=== PATIENT | male | born 1960 | race Caucasian/White ===

== ENCOUNTER → 2016-09-04 | Outpatient (CLI) | payer BC, OTHER ==
[~2016-09-04] MED LIST: ACET-1138 PO; ACET-1256 PO; ACET-24 PO; ASPEC81 PO; ASPI81TA28 PO; CLB/200 PO; CLB200 PO; COEN100C7 PO; KRIL1CAP18 PO; METO1TAB69 PO; METO50TA7 PO; MISCTAB78 PO; MULT-506 PO; NAPR1TAB9 PO; NORT10CA2 PO; OMEG10007 PO; OMEP40CA PO; ONDA8TAB12 PO; ONDA8TAB6 PO; OXYSR10 PO; PRLSR20 PO; RXC5 PO; VITA1TAB4 PO; megared PO
[2016-09-04 13:59] LABS: URINE APPEARANCE TURBID (CLEAR); URINE BILIRUBIN NEG (NEG); URINE COLOR DK YELLOW; URINE EPITHELIAL CELL AUTO 0-5 /lpf (0-5); URINE NITRITE NEG (NEG); URINE SPECIFIC GRAVITY 1.025 (1.000-1.030); UROBILINOGEN NEG (NEG)
[2016-09-04 14:02] LABS: MANUAL MICROSCOPIC REQUIRED? NO; REVIEW REQ? NO
== END | disposition home or self-care (01) ==
LOC: C.LABMFLN 08:41
PROVIDERS: ATTEND Family Medicine
DX: I10 Essential (primary) hypertension (principal); Z86.39 Personal history of other endocrine, nutritional and metabolic disease

== ENCOUNTER → 2016-09-20 | Outpatient (CLI) | payer BC, OTHER ==
[~2016-09-20] MED LIST changes: -MISCTAB78 PO; -OMEP40CA PO; -megared PO
[2016-09-20 17:49] LABS: BLOOD UREA NITROGEN 24 mg/dl (7-18); BUN/CREATININE RATIO 25.1 (10-20); CALCIUM 9.7 mg/dl (8.5-10.1); CARBON DIOXIDE 29 mmol/L (21-32); CHLORIDE 106 mmol/L (98-107); CREATININE 0.97 mg/dl (0.60-1.40); GLUCOSE 109 mg/dl (70-99); POTASSIUM 4.5 mmol/L (3.5-5.1); SODIUM 143 mmol/L (136-145)
== END | disposition home or self-care (01) ==
LOC: C.LABMFLN 13:12
PROVIDERS: ATTEND Anesthesiology
DX: M17.12 Unilateral primary osteoarthritis, left knee (principal)

== ENCOUNTER 2016-10-11 06:34 | Inpatient (IN) | payer BC, OTHER ==
[2016-09-19 11:34] VITALS: BMI 36.0
--- NOTE | 2016-09-19 12:13 | PAT Medication Instructions ---
Service Date Sep 19, 2016. Current Home Medication List Acetaminophen (Tylenol), 1,000 MG PO PRN Coenzyme Q10 (Ubidecarenone) (Coq10), 100 MG PO TID Fish Oil ([place]-3), 500 MG PO QAM Metoprolol Succ (Toprol Xl) (Toprol-Xl), 50 MG PO QAM Multivitamin (Multivitamin), 1 TAB PO QAM Naproxen (Aleve), 440 MG PO PRN Nortriptyline (Pamelor), 10 MG PO HS Omeprazole (Prilosec), 20 MG PO QAM Ondansetron Hcl (Zofran), 8 MG PO TID PRN for N Medication Instructions For Your Scheduled Surgery - Hold the following medications 2 weeks prior to surgery: Fish Oil ([place]-3), 500 MG PO QAM - Hold the following medications 24 hours prior to surgery: Coenzyme Q10 (Ubidecarenone) (Coq10), 100 MG PO TID - Hold the following medications the morning of surgery: Multivitamin (Multivitamin), 1 TAB PO QAM Naproxen (Aleve), 440 MG PO PRN - Take the following medications the morning of surgery with a sip of water OTHERWISE NOTHING TO EAT OR DRINK AFTER MIDNIGHT: Acetaminophen (Tylenol), 1,000 MG PO PRN (may take if needed up to 4 hours prior to surgery) Metoprolol Succ (Toprol Xl) (Toprol-Xl), 50 MG PO QAM Omeprazole (Prilosec), 20 MG PO QAM Ondansetron Hcl (Zofran), 8 MG PO TID PRN - Take the following medications as scheduled the night before surgery: Acetaminophen (Tylenol), 1,000 MG PO PRN Nortriptyline (Pamelor), 10 MG PO HS Naproxen (Aleve), 440 MG PO PRN Ondansetron Hcl (Zofran), 8 MG PO TID PRN for N If you have any questions please call us at [phone] (Hannah Caceres PA-C) or [phone] or [phone]
[2016-09-19 13:09] LABS: BASO % 0.6 %; BASO ABS # 0.03 K/uL (0-0.2); COMPLETE YES; EOS % 0.7 %; HEMATOCRIT 44.3 % (42-52); IG% 0.4 %; LYMPH % 25.9 %; LYMPH ABS # 1.39 K/uL (1.2-3.4); MEAN CELL VOLUME 86.9 fL (80-100); MEAN CORPUSCULAR HEMOGLOBIN 31.4 pg (25-34); MEAN CORPUSCULAR HGB CONC 36.1 g/dl (32-36); MONO % 4.1 %; NEUT % 68.3 %; PLATELET COUNT 256 K/uL (130-400); WHITE BLOOD COUNT 5.37 K/uL (4.8-10.8)
[2016-09-19 13:18] LABS: PROTHROMBIN TIME (PATIENT) 11.1 SECONDS (9.0-12.0)
[2016-09-19 13:51] LABS: BLOOD UREA NITROGEN 18 mg/dl (7-18); BUN/CREATININE RATIO 16.4 (10-20); CALCIUM 10.5 mg/dl (8.5-10.1); CARBON DIOXIDE 28 mmol/L (21-32); CHLORIDE 104 mmol/L (98-107); GLUCOSE 105 mg/dl (70-99); SODIUM 140 mmol/L (136-145)
[2016-09-19 14:09] LABS: ESTIMATED AVERAGE GLUCOSE 123 mg/dl; HA1C FLAG Normal (Normal)
--- NOTE | 2016-10-01 17:59 | HISTORY & PHYSICAL EXAMINATION ---
DATE OF ADMISSION: 10/11/2016 SUBJECTIVE AND CHIEF COMPLAINT: Left knee pain. HISTORY OF PRESENT ILLNESS: The patient is a 56-year-old male who complains of left knee pain. The symptoms have been getting progressively worse over time. He describes the pain as aching, sharp and throbbing. The patient has tried anti-inflammatories, physical therapy and cortisone injections without any relief. The patient would like to proceed with a left knee arthroplasty. PAST MEDICAL HISTORY: Significant for hypertension, GERD, osteoarthritis, sickle cell, vomiting syndrome. 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 SOCIAL HISTORY: Drinks 2 cans of beer per month. He quit smoking in April of 2014. He denies IV drug use. He lives in a 1-story house. FAMILY HISTORY: Mom had a stroke. Dad had a heart attack. MEDICATIONS: Metoprolol 50 mg once daily, multivitamin once daily, nortriptyline 10 mg at bedtime, Mick Krill 500 mg once daily, omeprazole 20 mg daily, Zofran as needed for nausea, CoQ10 100 mg 1 capsule 3 times daily. ALLERGIES: He has no known drug allergies. REVIEW OF SYSTEMS: He denies fevers, chills, headaches, weight loss, double vision, blurry vision, sore throat, hearing loss, tremors, dizziness, numbness or tingling, tired and thirsty hot and cold intolerance, abdominal pain, nausea, vomiting, diarrhea, chest pain, swelling of the legs or feet, frequency to go into the back, pain or burning with urination, incontinence, wheezing, cough, shortness of breath, depression, thoughts of harming himself or harm to others, nervousness or anxiousness. He is positive for joint pain, stiffness and swelling of the left knee. OBJECTIVE: GENERAL APPEARANCE: The patient is a 56-year-old male in no acute distress, well dressed, well nourished. He is awake, alert and oriented x3. HEENT: Extraocular movements are intact. PERRLA. Mucosa was moist. No septal deviation. NECK: Supple, no lymphadenopathy, no JVD, no thyromegaly. HEART: Regular rate and rhythm with no murmurs or gallops. LUNGS: Clear to auscultation. No wheezing or rhonchi. ABDOMEN: Soft, nontender, nondistended. Normal bowel sounds. EXTREMITIES: Hollister particular attention to the left knee. He is able to get to 0 degrees of extension actively. He is able to get to 110 degrees of flexion actively. He has negative Kris, negative anterior drawer, and negative posterior drawer. He is moderately positive with a valgus stress test. IMAGING DATA: X-ray of the left knee shows bone on bone on the medial compartment with periarticular osteophyte formation, and subchondral changes. IMPRESSION: End-stage osteoarthritis of the knee. PLAN: The patient is scheduled for a left total knee arthroplasty. The patient has failed conservative therapies which include anti-inflammatories, physical therapy and cortisone injections. The patient wishes to proceed with a left knee arthroplasty. Risks and benefits to surgery were included but not limited to blood clot, nerve damage, blood vessel damage, infection, failure to relieve all symptoms, increase or revision surgery and anesthesia risks. The patient understands these risks and he wishes to proceed. All questions were answered to his satisfaction. DANIELLE
[2016-10-11] VITALS (10 sets, daily range): BP systolic 123–148; BP diastolic 84–104; PULSE 89–118; TEMP 36.4–37; O2SAT 94–98; Ht 170.2 cm; Wt 104.2 kg
[~2016-10-11] VITALS: Ht 170.2 cm; Wt 104.2 kg
[~2016-10-11 06:34] MED LIST changes: -ACET-1138 PO; -ACET-24 PO; +ACETAMINOPHEN 500 MG TAB PO SCH; -ASPEC81 PO; -ASPI81TA28 PO; +CEFAZOLIN 2000 MG/60 ML D5W 60 ML IV SCH; -CLB/200 PO; -CLB200 PO; +CeleBREX 200 MG CAP PO SCH; +DEXAMETHASONE 4 MG TAB PO SCH; +FAMOTIDINE 20 MG TAB PO SCH; +GABAPENTIN 300 MG CAP PO SCH; -KRIL1CAP18 PO; +LACTATED RINGER'S 1000ML 1,000 ML IV SCH; +LACTATED RINGER'S 1000ML 500 ML IV ONE; +LACTATED RINGER'S 1000ML IV SCH; -METO1TAB69 PO; +METOCLOPRAMIDE HCL 10 MG TAB PO SCH; -ONDA8TAB12 PO; -OXYSR10 PO; +ROPIVACAINE 5MG/ML 30 ML 150 MG, BUPIVACAINE/EPINEPHR 0.5% MPF 30 ML, KETOROLAC TROMETH... INFIL SCH; -RXC5 PO; -VITA1TAB4 PO
[2016-10-11] MEDS ORDERED: BUPIVACAINE 0.25% 30 ML VIAL ONE (06:35)
[2016-10-11] MEDS ORDERED: BUPIVACAINE 0.5 % 5 MG/1 ML PF 10ML VIAL ONE (06:35)
[2016-10-11] MEDS ORDERED: MIDAZOLAM HCL 1 MG/ML 2ML VIAL ONE (07:08)
[2016-10-11] MEDS ORDERED: PROPOFOL IV EMULSION 10 MG/ML 20 ML VIAL IV ONE ×2 (07:10→11:05)
--- NOTE | 2016-10-11 08:00 | History & Physical Bridge Note ---
H&P Re-Evaluation Bridge Note: I have examined the patient, reviewed the History & Physical and in the interval since the performance of the History & Physical I have noted the following changes of clinical significance: No changes noted
[2016-10-11] MEDS ORDERED: POVIDONE-IODINE OP SOLN 30 ML BTL ONE (08:04)
[2016-10-11] MEDS ORDERED: ORTHO JOINT ANESTHETIC ONE (08:04)
[2016-10-11] MEDS ORDERED: BACITRACIN 50000 UNIT VIAL ONE (08:05)
[2016-10-11] MEDS: TRANEXAMIC ACID INJ 1,000 MG in SODIUM CHLORIDE 0.9% 100ML 100 ML IV SCH ×2 (08:54→13:13)
[2016-10-11] MEDS ORDERED: ONDANSETRON INJ 2 MG/ML 2 ML VIAL ONE (09:40)
[2016-10-11] MEDS ORDERED: ONDANSETRON INJ 2 MG/ML 2 ML VIAL IV PRN ×2 (09:45→11:45)
[2016-10-11] MEDS ORDERED: ATROPINE SULFATE 0.1 MG/ML 5ML SYR IV PRN (09:45)
[2016-10-11] MEDS ORDERED: KETOROLAC TROMETHAMINE 30 MG/ML VIAL IV. PRN (09:45)
[2016-10-11] MEDS ORDERED: PHENYLEPHRINE 100MCG/ML 5ML SYR IV PRN (09:45)
[2016-10-11] MEDS ORDERED: HYDROmorphone INJ 2 MG/ML SYR/VIAL IV PRN (09:45)
[2016-10-11] MEDS ORDERED: EpHEDrine SULFATE INJ 50 MG/ML AMP IV PRN (09:45)
--- NOTE | 2016-10-11 10:47 | [facility] Post Operative Brief Note ---
Immediate Operative Summary Operative Date Oct 11, 2016. Pre-Operative Diagnosis End-stage osteoarthritis of the left knee Post-Operative Diagnosis Same as preoperative diagnosis Procedure(s) Performed Left Total Knee Arthroplasty Surgeon Dr Bates Two Way Radio Technician Surgeon(s) Jareth Dela Cruz PA-C Estimated Blood Loss 20ML Findings above Specimens A: left knee bone and tissue Drains 2 hemovac Anesthesia spinal Complication(s) None Disposition Recovery Room / PACU
[2016-10-11] MEDS ORDERED: ZOLPIDEM TARTRATE 5 MG TAB PO PRN (11:45)
[2016-10-11] MEDS ORDERED: ALUMINUM/MAGNESIUM/SIMETH (MAALOX MAX) 30 ML UDC PO PRN (11:45)
[2016-10-11] MEDS ORDERED: OXYCODONE HCL IR 5 MG TAB (IMMEDIATE RELEASE) PO PRN (11:45)
[2016-10-11] MEDS ORDERED: MoRPHine SULFATE 2 MG/ML CARP IV PRN (11:45)
[2016-10-11] MEDS ORDERED: TAMSULOSIN HCL 0.4 MG CAP PO PRN (11:45)
[2016-10-11] MEDS ORDERED: DiphenhydrAMINE HCL 50 MG/ML VIAL IV PRN (11:45)
[2016-10-11] MEDS ORDERED: BISACODYL 10 MG SUPP PR PRN (11:45)
[2016-10-11] MEDS ORDERED: MAGNESIUM HYDROXIDE SUSP 30 ML UDC PO PRN (11:45)
--- NOTE | 2016-10-11 12:10 | DIAGNOSTIC IMAGING REPORT ---
LEFT KNEE 1 OR 2 VIEWS ROUTINE CLINICAL HISTORY: AP/LATERAL IN PACU LEFT KNEE joint replacement COMPARISON: None. DISCUSSION: Anatomic alignment status post total left knee replacement. Good contact between prosthetic and underlying bone. IMPRESSION: Anatomic alignment status post total left knee replacement Electronically signed by: Catrachito Whalen M.D. 10/11/2016 12:09 PM Dictated Date/Time: 10/11/2016 12:08 PM
[2016-10-11] MEDS ORDERED: MoRPHine SULFATE 10 MG/ML CARP/VIAL IV PRN (14:00)
[2016-10-11] MEDS ORDERED: MoRPHine SULFATE 4 MG/ML 1 ML CARP\\VIAL IV PRN (14:00)
[2016-10-11] MEDS ORDERED: NON-FORMULARY MEDICATION (Coenzyme Q10 (Ubidecarenone) (Coq10) 100 MG) PO SCH (14:00)
[2016-10-11] MEDS: D5W AND 1/2NSS + 20MEQ KCL 1,000 ML IV SCH ×2 (14:06→22:51)
--- NOTE | 2016-10-11 14:37 | Anesthesiology Progress Note ---
Anesthesia Post Op Note Date & Time Oct 11, 2016 at 14:37 Vital Signs Pain Intensity: 0 Vital Signs Past 12 Hours Date Time Temp Pulse Resp B/P Pulse Ox O2 Delivery O2 Flow Rate FiO2 10/11/16 14:15 94 18 147/102 98 10/11/16 13:15 36.6 93 18 132/93 97 Nasal Cannula 2.0 10/11/16 12:47 36.4 91 16 126/90 96 Nasal Cannula 2.0 10/11/16 12:15 Nasal Cannula 2.0 10/11/16 12:15 Nasal Cannula 10/11/16 12:15 36.4 89 16 129/89 96 Nasal Cannula 2.0 10/11/16 12:09 36.9 10/11/16 12:05 98 16 10/11/16 12:05 98 16 98 10/11/16 12:03 121/79 10/11/16 12:00 80 15 96 10/11/16 12:00 80 15 10/11/16 11:58 114/81 10/11/16 11:55 92 17 97 10/11/16 11:55 92 17 10/11/16 11:53 109/81 10/11/16 11:50 88 10/11/16 11:50 87 16 97 10/11/16 11:48 121/86 10/11/16 11:45 89 10/11/16 11:45 89 16 97 10/11/16 11:43 111/74 10/11/16 11:40 101 10/11/16 11:40 101 12 96 10/11/16 11:39 131/99 10/11/16 11:35 110 16 10/11/16 11:35 109 16 118/81 97 10/11/16 11:35 37.1 108 18 118/81 97 Nasal Cannula 3 10/11/16 07:28 37 91 18 148/104 95 Room Air Notes Mental Status: alert / awake / arousable, participated in evaluation Pt Amnestic to Procedure: Yes Nausea / Vomiting: adequately controlled Pain: adequately controlled Airway Patency, RR, SpO2: stable & adequate BP & HR: stable & adequate Hydration State: stable & adequate Anesthetic Complications: no major complications apparent
[2016-10-11] MEDS: ACETAMINOPHEN 500 MG TAB PO SCH ×2 (16:14→22:51)
[2016-10-11] MEDS: KETOROLAC TROMETHAMINE 30 MG/ML VIAL IV. SCH ×2 (16:14→20:41)
[2016-10-11] MEDS: CEFAZOLIN IV 2,000 MG in DEXTROSE 5% 50ML 50 ML IV SCH (18:07)
[2016-10-11] MEDS: FERROUS GLUCONATE 324 MG TAB PO SCH (18:07)
[2016-10-11] MEDS: OXYCODONE HCL 10 MG TABCR (OXYCONTIN) PO SCH (18:07)
[2016-10-11] MEDS: ASPIRIN 81 MG ECTAB PO SCH (20:40)
[2016-10-11] MEDS: DOCUSATE SODIUM 100 MG CAP PO SCH (20:41)
[2016-10-11] MEDS ORDERED: SENNA 8.6 MG TAB PO SCH (21:00)
[2016-10-11] MEDS ORDERED: NORTRIPTYLINE HCL 10 MG CAP PO SCH (21:00)
--- NOTE | 2016-10-11 21:29 | OPERATIVE REPORT ---
DATE OF OPERATION: 10/11/2016 PREOPERATIVE DIAGNOSIS: Left knee degenerative joint disease. POSTOPERATIVE DIAGNOSIS: Same. PROCEDURE: Left total knee arthroplasty. SURGEON: Dr. Bates. ASSISTANTS: Chung Barajas PA-C and Jareth Dela Cruz PA-C, who were necessary for assistance of the procedure with positioning, prepping, draping, retraction and closure. ANESTHESIA: Spinal with adductor canal block. SPECIMEN: Bone and tissue. IMPLANTS: Manjarrez \T\ Nephew Journey version II femur 6, tibia 5, poly 9, patella 35 oval. DRAINS: Two Hemovacs. COMPLICATIONS: None. ESTIMATED BLOOD LOSS: 20 mL. INDICATIONS: The patient is a 56-year-old male with longstanding osteoarthritic change in the left knee, bone on bone in the medial compartment. He has failed conservative measures including injection, anti-inflammatories and rehab. Failing conservative measures, he wished to proceed with left total knee arthroplasty. Risks, benefits and alternatives to surgery including but not limited to infection, DVT, pain, stiffness, need for revision surgery, failure to relieve all symptoms, damage to blood vessels, damage to nerves, risks of anesthesia discussed with the patient and he wished to proceed. DESCRIPTION OF PROCEDURE: The patient was identified, laterality was confirmed and marked. He received a preoperative antibiotic as well as a spinal anesthetic and an adductor canal block. A well-padded tourniquet was placed on the thigh and limb was prepped and draped in usual sterile manner with ChloraPrep. Limb was exsanguinated and tourniquet was inflated. I made a longitudinal incision in anterior aspect of the knee, sharply incising through the skin utilizing Bovie electrocautery to achieve hemostasis. I made a medial parapatellar arthrotomy, mobilized the patella laterally. I then excised the fat pad and the anterior horns of the medial and lateral meniscus. I then pinned into place the patient matched distal femoral cutting guide, made my distal femoral resection and then pinned in place a size 6 5-in-1 cutting guide, made my anterior, posterior and chamfer cuts. I then excised the cruciate, I then prepared the patella with a freehand cut and sized and drilled for a size 35 oval patella. I then pinned into place the patient matched tibial cutting guide, made my tibial resection, sized in position and cut for the post of a size 5 tibial plate. I then removed the remaining portion of the menisci and posterior osteophytes off the femur. I then placed a size [address], cut for the trochlear component, placed this into position. We had good soft tissue balancing with a 9 poly. The patella tracked well. No lateral release was required. All the trial components were removed. Wound was thoroughly irrigated. Deep tissues were anesthetized with an Orthomix solution and then with a Simplex HV with gent cement, I cemented my definitive components. This was Manjarrez \T\ Nephew Journey version II femur 6, tibia 5, poly 9, patella 35 oval. Betadine soak was performed. The arthrotomy was closed with interrupted #1 Vicryl suture, subcutaneous tissue with interrupted 2-0 Vicryl suture and skin with yadiel. Sterile dressing was applied and the tourniquet was released. All needle and sponge counts were correct at the end of the procedure. The patient was transferred to the PACU in stable condition without apparent complication. I attest to the content of the Intraoperative Record and any orders documented therein. Any exceptio ns are noted below.
[2016-10-12] MEDS: CEFAZOLIN IV 2,000 MG in DEXTROSE 5% 50ML 50 ML IV SCH (01:42)
[2016-10-12] MEDS: KETOROLAC TROMETHAMINE 30 MG/ML VIAL IV. SCH ×2 (03:57→09:21)
[2016-10-12 04:02] VITALS: BP 133/87; PULSE 98; TEMP 36.5; O2SAT 95
[2016-10-12 06:52] LABS: HEMATOCRIT 36.1 % (42-52); MEAN CORPUSCULAR HEMOGLOBIN 30.7 pg (25-34); MEAN CORPUSCULAR HGB CONC 34.9 g/dl (32-36); MEAN PLATELET VOLUME 10.9 fL (7.4-10.4); PLATELET COUNT 265 K/uL (130-400); WHITE BLOOD COUNT 13.76 K/uL (4.8-10.8)
[2016-10-12 07:19] LABS: BUN/CREATININE RATIO 20.9 (10-20); CALCIUM 8.7 mg/dl (8.5-10.1); CREATININE 1.1 mg/dl (0.60-1.40); POTASSIUM 4.3 mmol/L (3.5-5.1)
[2016-10-12 07:26] VITALS: BP 146/67; PULSE 106; TEMP 36.8; O2SAT 94
[2016-10-12] MEDS ORDERED: METOPROLOL SUCC 50MG EXT REL TAB PO SCH (09:00)
[2016-10-12] MEDS ORDERED: NON-FORMULARY MEDICATION (Omeprazole (Prilosec) 20 MG) PO SCH (09:00)
[2016-10-12] MEDS ORDERED: PANTOprazole SOD 40 MG TAB PO SCH (09:00)
[2016-10-12] MEDS ORDERED: MULTIVITAMIN TAB PO SCH (09:00)
[2016-10-12] MEDS: OXYCODONE HCL 10 MG TABCR (OXYCONTIN) PO SCH (09:02)
[2016-10-12] MEDS: DOCUSATE SODIUM 100 MG CAP PO SCH (09:03)
[2016-10-12] MEDS: FERROUS GLUCONATE 324 MG TAB PO SCH (09:04)
[2016-10-12] MEDS: ASPIRIN 81 MG ECTAB PO SCH (09:04)
[2016-10-12] MEDS: ACETAMINOPHEN 500 MG TAB PO SCH (09:04)
--- NOTE | 2016-10-12 09:55 | Orthopedic Progress Note ---
Orthopedic Progress Note Date of Service Oct 12, 2016. Subjective Post OP Day: 1 Reports: feeling well, pain controlled w PO medications, Denies: SOB, calf pain , chest pain, complaints, light headedness, nausea / vomiting Objective calves soft nontender, N/V intact, capillary refill less than 2 sec., dressing C /D/I, A&O x3, toes mobile Date Time Temp Pulse Resp B/P Pulse Ox O2 Delivery O2 Flow Rate FiO2 10/12/16 07:50 Room Air 10/12/16 07:26 36.8 106 20 146/67 94 Room Air 10/12/16 04:02 36.5 98 16 133/87 95 Room Air 10/12/16 00:38 Room Air 10/11/16 23:49 37.0 103 16 129/84 96 Room Air 10/11/16 20:43 108 10/11/16 19:30 36.7 118 18 123/87 94 10/11/16 16:15 Room Air 10/11/16 15:17 36.8 110 18 124/93 97 Nasal Cannula 2.0 10/11/16 14:44 142/96 10/11/16 14:15 94 18 147/102 98 10/11/16 13:15 36.6 93 18 132/93 97 Nasal Cannula 2.0 10/11/16 12:47 36.4 91 16 126/90 96 Nasal Cannula 2.0 10/11/16 12:15 Nasal Cannula 2.0 10/11/16 12:15 Nasal Cannula 10/11/16 12:15 36.4 89 16 129/89 96 Nasal Cannula 2.0 10/11/16 12:09 36.9 10/11/16 12:05 98 16 10/11/16 12:05 98 16 98 10/11/16 12:03 121/79 10/11/16 12:00 80 15 96 10/11/16 12:00 80 15 10/11/16 11:58 114/81 10/11/16 11:55 92 17 97 10/11/16 11:55 92 17 10/11/16 11:53 109/81 10/11/16 11:50 88 10/11/16 11:50 87 16 97 10/11/16 11:48 121/86 10/11/16 11:45 89 10/11/16 11:45 89 16 97 10/11/16 11:43 111/74 10/11/16 11:40 101 10/11/16 11:40 101 12 96 10/11/16 11:39 131/99 10/11/16 11:35 110 16 10/11/16 11:35 109 16 118/81 97 10/11/16 11:35 37.1 108 18 118/81 97 Nasal Cannula 3 Laboratory Results 24 Hours: Test 10/12/16 06:04 Hematocrit 36.1 % Hemoglobin 12.6 g/dL Assessment & Plan Assessment: POD #1, Lt TKA Plan: PT/ Ot DVT proph- ASA D/C planning- Home w HH today if does well in PT. Inhouse Planning Pain Management: Toradol, Oxycontin, Morphine, PO Tylenol, Oxy IR DVT Prophylaxis: TEDs, SCDs, ASA Discharge Planning Discharge Planning: home with home health Pain Management: Oxycontin, PO Tylenol, Oxy IR DVT Prophylaxis: TEDs, ASA Therapy: Physical Therapy, Occupational Therapy
[2016-10-12] MEDS ORDERED: ONDA8TAB6 PO (09:58)
[2016-10-12] MEDS ORDERED: RXC5 PO (09:58)
[2016-10-12] MEDS ORDERED: ASPEC81 PO (09:58)
[2016-10-12] MEDS ORDERED: OXYSR10 PO (09:58)
[2016-10-12] MEDS ORDERED: ACET-1138 PO (09:58)
--- NOTE | 2016-10-12 10:00 | Discharge Instructions ---
Discharge Instructions Admission Reason for Admission: Left Knee Osteoarthritis Discharge Discharge Diagnosis / Problem: Lt TKA Discharge Goals Goal(s): Improve function Activity Recommendations Activity Limitations: as noted below . Instructions / Follow-Up Instructions / Follow-Up ACTIVITY RECOMMENDATIONS: SELF CARE INSTRUCTIONS AFTER TOTAL KNEE REPLACEMENT A. You may need to continue a physical therapy program after discharge from the hospital. There are several options available to you. Your doctor will assist you in selecting the best one for you. 1. An out-patient facility 2 to 3 times a week for therapy or home therapy. 2. Continue working on all exercises taught to you in the hospital. Your goals should be to increase bending of your knee to 90 degrees and beyond and to fully straighten your knee. B. You may progress at your own pace from walking with a walker or crutches to a cane; then to no assistive devices. C. Make walking a part of your daily routine. Be up as much as comfortable with rest periods throughout the day. Rest with leg elevation is very important. Use the ice wrap frequently for the first 3-4 weeks. D. There are no restrictions on activities. You may ride in a car, shop, participate in general merchandise salesperson and all social activities. E. Wear the long elastic stockings (DAKOTAH hose) 20 hours a day for 2 weeks after surgery. They can be removed several times a day for laundering and for a bath. F. You may shower, no tub baths until cleared by your doctor. SPECIAL CARE INSTRUCTIONS: VERY IMPORTANT TO READ AND REVIEW A. There are a few signs you need to watch for after you are home. Call [facility] if you notice any of the followin. Increased severe knee pain. Some pain is expected especially when you exercise. 2. Increased swelling in your leg or knee; pain or swelling of the calf muscle in either lower leg. 3. Any fluid drainage from the incision. 4. Shortness of breath or chest pain. B. Please call [facility] at if you have any concerns or questions about your operation or recovery. The doctor or his nurse will return your call promptly. C. You must take antibiotics before dental work, bladder, bowel or other surgery. Your doctor will provide you with a permanent care to carry describing this precaution. IMPORTANT: * REMEMBER TO TAKE ASPIRIN, 81 MG, TWICE DAILY FOR 4 WEEKS UNLESS OTHERWISE DIRECTED. THIS IS YOUR BLOOD THINNER. * HIGH RISK PATIENTS MAY BE PRESCRIBED A STRONGER BLOOD THINNER. THIS WILL BE PROVIDED AT DISCHARGE. * CALL IF INCREASED PAIN, REDNESS, DRAINAGE OR FEVER GREATER THAT 101. * WEAR DAKOTAH HOSE 20 HOURS PER DAY FOR 2 WEEKS. * YOU MAY HAVE A LARGE BAND-AID LIKE DRESSING (SILVERON). THIS WILL REMAIN ON YOUR INCISION FOR 7 DAYS, THEN CAN BE REMOVED. IF INCISION IS LEAKING THROUGH DRESSING, CALL THE OFFICE . FOLLOW UP VISIT: If appointment is not already scheduled: Please call [facility] to make a follow-up appointment for 2 weeks after your surgery at . Current Hospital Diet Patient's current hospital diet: Regular Diet Discharge Diet Recommended Diet: Regular Diet Procedures Procedures Performed: Left Total Knee Arthroplasty Pending Studies Studies pending at discharge: no Laboratory Results Hemoglobin A1c Test 09/19/16 12:20 Range/Units Estimated Average Glucose 123 mg/dl Hemoglobin A1c 5.9 H 4.5-5.6 % Lipid Panel Test 09/04/16 09:40 Range/Units Triglycerides Level 321 H 0-150 mg/dl Cholesterol Level 210 H 0-200 mg/dl HDL Cholesterol 35 mg/dl Cholesterol/HDL Ratio 6.0 LDL Cholesterol, Calculated 111 mg/dl Medical Emergencies . Who to Call and When: Medical Emergencies: If at any time you feel your situation is an emergency, please call 911 immediately. . Non-Emergent Contact Non-Emergency issues call your: Primary Care Provider . "Provider Documentation" section prepared by Catrachito Meredith. VTE Core Measure Inpt VTE Proph given/why not?: Other Anticoagulation (asa), T.E.D. Stockings, SCD's
[2016-10-12 10:05] VITALS: BP 146/67; PULSE 106; TEMP 36.8; O2SAT 94
--- NOTE | 2016-10-16 00:39 | DISCHARGE SUMMARY ---
ADMISSION DIAGNOSIS: Severe end-stage left knee osteoarthritis. DISCHARGE DIAGNOSIS: Left total knee arthroplasty. CONSULTS: None. PROCEDURES: On 10/11/2016, the patient had a left TKA performed. HISTORY OF PRESENT ILLNESS: The patient is a 56-year-old male who complains of left knee pain. Symptoms have been getting progressively worse over time. He describes the pain as aching, sharp and throbbing. The patient has tried anti-inflammatories, physical therapy and cortisone injections without relief. The patient would like to proceed with a left knee arthroplasty. HOSPITAL COURSE: Postop day #1, the patient reports feeling well. Pain is controlled with p.o. medication. He denies shortness of breath, chest pain, lightheadedness, nausea or vomiting. His plan was to be discharged to home with home health. DISCHARGE CONDITION: Stable. DISPOSITION: Home with home health. MEDICATIONS: Acetaminophen 1000 mg every 8 hours for 21 days, aspirin 81 mg twice daily for 30 days, OxyContin 10 mg by mouth twice daily, oxycodone 5 to 10 mg by mouth q. 4 hours as needed for pain, Coenzyme Q10 at 100 mg by mouth 3 times daily, Toprol-XL 50 mg by mouth in the morning, multivitamin by mouth in the morning, nortriptyline 10 mg by mouth at bedtime, Prilosec 20 mg by mouth in the morning, Zofran 8 mg by mouth 3 times daily as needed for nausea. INSTRUCTIONS: The patient is discharged, physical therapy 2-3 times a week after discharge from the hospital. He is allowed to use ice as needed. He is to wear elastic stockings 20 hours a day for 2 weeks after surgery. He may shower but no bath tubs until cleared by the doctor. He is to have a regular diet. He is to call [facility] if he notices an increase in knee pain, fluid drainage from the incision, shortness of breath or chest pain. He is to remember to take aspirin 81 mg twice daily for 4 weeks. He is to schedule a followup appointment with [facility] 2 weeks after his surgery with Dr. Bates or his PA. DANIELLE
[2017-04-23] MEDS ORDERED: ACET-1256 PO (10:46)
[2017-04-23] MEDS ORDERED: METO1TAB69 PO (10:46)
[2017-04-23] MEDS ORDERED: ASPI81TA28 PO (10:46)
[2017-04-23] MEDS ORDERED: VITA1TAB4 PO (10:48)
[2017-05-12] MEDS ORDERED: NAPR1TAB9 PO (12:54)
[2017-05-12] MEDS ORDERED: KRIL1CAP18 PO (12:54)
[2017-05-12] MEDS ORDERED: CLB/200 PO (12:54)
== END 2016-10-12 12:40 | disposition home health service (06) | DRG 470 ==
LOC: ENRESERVTM → ENRESERVDT → C.ACU 06:34 → C.3E 11:48
PROVIDERS: ADMIT Orthopaedic Surgery; ATTEND Orthopaedic Surgery
PROC: 0SRD0J9 Replacement of Left Knee Joint with Synthetic Substitute, Cemented, Open Approach (ICD-10-PCS; principal; 2016-10-11 09:30)
DX: M17.12 Unilateral primary osteoarthritis, left knee (principal); I10 Essential (primary) hypertension; K21.9 Gastro-esophageal reflux disease without esophagitis; Z79.899 Other long term (current) drug therapy; Z87.891 Personal history of nicotine dependence; Z82.49 Family history of ischemic heart disease and other diseases of the circulatory system; Z82.3 Family history of stroke

== ENCOUNTER 2017-05-23 04:46 | Inpatient (IN) | payer BC, OTHER ==
[2017-04-23 10:48] VITALS: BMI 35.0
--- NOTE | 2017-04-23 11:25 | PAT Medication Instructions ---
Service Date Apr 23, 2017. Current Home Medication List Acetaminophen (Tylenol), 1,000 MG PO Q8 PRN for Pain Aspirin (Aspirin Ec), 81 MG PO QAM Coenzyme Q10 (Ubidecarenone) (Coq10), 100 MG PO TID Metoprolol Succ (Toprol Xl) (Toprol-Xl ), 150 MG PO QAM Multivitamin (Multivitamin), 1 TAB PO QAM Nortriptyline (Pamelor), 10 MG PO HS Omeprazole (Prilosec), 20 MG PO QAM Vitamin E (Vitamin E), Unknown Dose PO QAM Medication Instructions For Your Scheduled Surgery - Hold the following medications 2 weeks prior to surgery: Vitamin E (Vitamin E), Unknown Dose PO QAM - Hold the following medications 24 hours prior to surgery: Coenzyme Q10 (Ubidecarenone) (Coq10), 100 MG PO TID (Rx from GI) - Hold the following medications the morning of surgery: Multivitamin (Multivitamin), 1 TAB PO QAM - Take the following medications the morning of surgery with a sip of water OTHERWISE NOTHING TO EAT OR DRINK AFTER MIDNIGHT: Omeprazole (Prilosec), 20 MG PO QAM Aspirin (Aspirin Ec), 81 MG PO QAM Metoprolol Succ (Toprol Xl) (Toprol-Xl ), 150 MG PO QAM Acetaminophen (Tylenol), 1,000 MG PO Q8 PRN for Pain (if needed up to 4 hours prior to surgery) - Take the following medications as scheduled the night before surgery: Nortriptyline (Pamelor), 10 MG PO HS If you have any questions please call us at [phone] or [phone] or [phone]
--- NOTE | 2017-04-23 11:43 | DIAGNOSTIC IMAGING REPORT ---
CHEST 2 VIEWS ROUTINE CLINICAL HISTORY: 57 years-old Male presenting with preoperative assessment prior to right knee replacement. TECHNIQUE: PA and lateral views of the chest were obtained. COMPARISON: 04/12/2015. FINDINGS: Cardiomediastinal silhouette normal. Lungs and pleural spaces clear. Osseous structures normal. Upper abdomen normal. IMPRESSION: 1. No acute cardiopulmonary disease. Electronically signed by: George Pollock M.D. 04/23/2017 11:41 AM Dictated Date/Time: 04/23/2017 11:41 AM
[2017-04-23 11:49] LABS: BASO % 0.4 %; BASO ABS # 0.02 K/uL (0-0.2); COMPLETE YES; EOS % 2.4 %; HEMATOCRIT 39.4 % (42-52); IG% 0.4 %; LYMPH % 45.5 %; LYMPH ABS # 2.11 K/uL (1.2-3.4); MEAN CELL VOLUME 86.8 fL (80-100); MEAN CORPUSCULAR HEMOGLOBIN 30.4 pg (25-34); MEAN PLATELET VOLUME 10.9 fL (7.4-10.4); MONO % 8.2 %; NEUT % 43.1 %; PLATELET COUNT 250 K/uL (130-400); RED BLOOD COUNT 4.54 M/uL (4.7-6.1); URINE APPEARANCE CLEAR (CLEAR); URINE BILIRUBIN NEG (NEG); URINE COLOR YELLOW; URINE NITRITE NEG (NEG); UROBILINOGEN NEG (NEG); WHITE BLOOD COUNT 4.64 K/uL (4.8-10.8); ZZUR CULT IF INDIC CLEAN CATCH NO
[2017-04-23 11:50] LABS: MANUAL MICROSCOPIC REQUIRED? NO; REVIEW REQ? NO
[2017-04-23 12:17] LABS: ESTIMATED AVERAGE GLUCOSE 126 mg/dl; HA1C FLAG Normal (Normal)
[2017-04-23 14:06] LABS: BUN/CREATININE RATIO 24.1 (10-20); CALCIUM 8.9 mg/dl (8.5-10.1); POTASSIUM 4.1 mmol/L (3.5-5.1)
--- NOTE | 2017-05-19 08:52 | HISTORY & PHYSICAL EXAMINATION ---
DATE OF ADMISSION: 05/23/2017 CHIEF COMPLAINT: Right knee pain. HISTORY OF PRESENT ILLNESS: The patient is a 57-year-old male who complains of right knee pain that has been getting progressively worse over time. He describes the pain as aching, sharp and throbbing. The patient has tried anti-inflammatories, physical therapy and cortisone injections without any relief. He would like to proceed with a right total knee arthroplasty. PAST MEDICAL HISTORY: Significant for hypertension, GERD, osteoarthritis, sickle cell, vomiting syndrome. 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 SOCIAL HISTORY: Drinks 2 cans of beer per month. He quit smoking in April 2014. He denies IV drug use. He lives in a 1-story house. FAMILY HISTORY: Mom had a stroke. Dad had a heart attack. MEDICATIONS: Metoprolol 50 mg once daily, multivitamin once daily, nortriptyline 10 mg at bedtime, wolfgang Krill 500 mg once daily, omeprazole 20 mg daily, Zofran as needed for nausea, CoQ10 100 mg 1 capsule 3 times daily. ALLERGIES: He has no known drug allergies. REVIEW OF SYSTEMS: Denies fevers, chills, headaches, weight loss, double vision, blurry vision, sore throat, hearing loss, tremors, dizziness, numbness or tingling, tired, thirsty, hot and cold intolerance, abdominal pain, nausea, vomiting, diarrhea, chest pain, swelling into the legs or frequency going to the bathroom, no pain or burning with urination or incontinence, no wheezing, cough, shortness of breath, depression, thoughts to harm himself or harm others, nervousness or anxiousness. He is positive for joint pain and joint stiffness of the right knee. OBJECTIVE: GENERAL APPEARANCE: The patient is a 57-year-old male in no acute distress. He is well dressed, well nourished. He is awake, alert and oriented x3. HEENT: Normocephalic, atraumatic. Extraocular movements are intact. Mucosa is moist. No septal deviation. NECK: Supple with no lymphadenopathy, no JVD, no thyromegaly. HEART: Regular rate and rhythm with no murmurs or gallops. LUNGS: Clear to auscultation. No wheezing or rhonchi. ABDOMEN: Soft, nontender, nondistended. Normal bowel sounds, no hepatosplenomegaly. EXTREMITIES: Paying particular attention to the right knee, he is able to extend to 0 degrees and flex to 110 degrees. He has negative Kris, negative anterior drawer and negative posterior drawer. He has medial joint line tenderness, negative valgus and varus stress tests. IMAGING: X-rays of the right knee demonstrate bone on bone with medial compartment with periarticular osteophyte formation and subchondral sclerosis. IMPRESSION: Primary osteoarthritis of the right knee. PLAN: The patient is scheduled for a right total knee arthroplasty. The patient has failed conservative therapies which include anti-inflammatories, physical therapy and cortisone injections. The patient wishes to proceed with a right total knee arthroplasty. Risks and benefits to surgery were discussed and included but not limited to pain, DVT, infection, blood clots, damage to blood vessels, damage to nerves, failure to relieve all symptoms, PE and and anesthesia risks were all discussed with the patient and he understands these risks and wishes to proceed. All questions were answered to his satisfaction. DANIELLE
[~2017-05-23] VITALS: Ht 172.7 cm; Wt 104.0 kg
[2017-05-23] VITALS (9 sets, daily range): BP systolic 117–149; BP diastolic 73–102; PULSE 72–98; TEMP 36.6–37; O2SAT 96–100; Ht 172.7 cm; Wt 104.0 kg
[~2017-05-23 04:46] MED LIST changes: -ACET-1256 PO; -ACETAMINOPHEN 500 MG TAB PO SCH; +ASPI81TA28 PO; -CEFAZOLIN 2000 MG/60 ML D5W 60 ML IV SCH; +CLB/200 PO; -CeleBREX 200 MG CAP PO SCH; -DEXAMETHASONE 4 MG TAB PO SCH; -FAMOTIDINE 20 MG TAB PO SCH; -GABAPENTIN 300 MG CAP PO SCH; +KRIL1CAP18 PO; -LACTATED RINGER'S 1000ML 1,000 ML IV SCH; -LACTATED RINGER'S 1000ML 500 ML IV ONE; -LACTATED RINGER'S 1000ML IV SCH; +METO1TAB69 PO; -METO50TA7 PO; -METOCLOPRAMIDE HCL 10 MG TAB PO SCH; -OMEG10007 PO; -ONDA8TAB6 PO; -ROPIVACAINE 5MG/ML 30 ML 150 MG, BUPIVACAINE/EPINEPHR 0.5% MPF 30 ML, KETOROLAC TROMETH... INFIL SCH
[2017-05-23] MEDS ORDERED: NURSING VERBAL MED ORDER STA (05:53)
[2017-05-23] MEDS ORDERED: CEFAZOLIN 2000 MG/60 ML D5W IV SCH ×2 (06:00)
[2017-05-23] MEDS ORDERED: LACTATED RINGER'S 1000ML 1,000 ML IV SCH ×2 (06:00)
[2017-05-23] MEDS ORDERED: ROPIVACAINE 5MG/ML 30 ML 150 MG, BUPIVACAINE/EPINEPHR 0.5% MPF 30 ML, KETOROLAC TROMETH... INFIL SCH ×7 (06:00)
[2017-05-23] MEDS ORDERED: DEXAMETHASONE 4 MG TAB PO SCH (06:00)
[2017-05-23] MEDS ORDERED: OXYCODONE HCL 10 MG TABCR (OXYCONTIN) PO SCH (06:00)
[2017-05-23] MEDS ORDERED: ACETAMINOPHEN 500 MG TAB PO SCH (06:00)
[2017-05-23] MEDS ORDERED: GABAPENTIN 300 MG CAP PO SCH (06:00)
[2017-05-23] MEDS ORDERED: CeleBREX 200 MG CAP PO SCH (06:00)
[2017-05-23] MEDS ORDERED: FAMOTIDINE 20 MG TAB PO SCH (06:00)
[2017-05-23] MEDS ORDERED: METOCLOPRAMIDE HCL 10 MG TAB PO SCH (06:00)
[2017-05-23] MEDS ORDERED: BUPIVACAINE 0.25% 30 ML VIAL ONE (06:19)
[2017-05-23] MEDS ORDERED: BUPIVACAINE 0.5 % 5 MG/1 ML PF 10ML VIAL ONE (06:19)
[2017-05-23] MEDS ORDERED: BACITRACIN 50000 UNIT VIAL ONE (06:30)
[2017-05-23] MEDS ORDERED: POVIDONE-IODINE OP SOLN 30 ML BTL ONE (06:30)
[2017-05-23] MEDS ORDERED: FENTANYL CITRATE INJ 50 MCG/1 ML 2 ML VIAL ONE (06:43)
[2017-05-23] MEDS ORDERED: MIDAZOLAM HCL 1 MG/ML 2ML VIAL ONE (06:43)
[2017-05-23] MEDS: TRANEXAMIC ACID INJ 1,000 MG in SODIUM CHLORIDE 0.9% 100ML 100 ML IV SCH ×2 (06:48→10:36)
[2017-05-23] MEDS ORDERED: METOCLOPRAMIDE HCL 10 MG TAB PO ONE (06:52)
[2017-05-23] MEDS ORDERED: CeleBREX 200 MG CAP ONE (06:52)
[2017-05-23] MEDS ORDERED: ACETAMINOPHEN 500 MG TAB PO ONE (06:52)
[2017-05-23] MEDS ORDERED: OXYCODONE HCL 10 MG TABCR (OXYCONTIN) PO ONE (06:52)
[2017-05-23] MEDS ORDERED: DEXAMETHASONE 4 MG TAB ONE (06:52)
[2017-05-23] MEDS ORDERED: GABAPENTIN 300 MG CAP PO ONE (06:52)
[2017-05-23] MEDS ORDERED: FAMOTIDINE 20 MG TAB ONE (06:52)
[2017-05-23] MEDS ORDERED: PROPOFOL IV EMULSION 10 MG/ML 20 ML VIAL IV ONE (07:30)
[2017-05-23] MEDS ORDERED: ORTHO JOINT ANESTHETIC ONE (08:03)
[2017-05-23] MEDS ORDERED: DiphenhydrAMINE HCL 50 MG/ML VIAL IV PRN (09:00)
[2017-05-23] MEDS ORDERED: MULTIVITAMIN TAB PO SCH (09:00)
[2017-05-23] MEDS ORDERED: NON-FORMULARY MEDICATION (Coenzyme Q10 (Ubidecarenone) (Coq10) 100 MG) PO SCH (09:00)
[2017-05-23] MEDS ORDERED: ALUMINUM/MAGNESIUM/SIMETH (MAALOX MAX) 30 ML UDC PO PRN (09:00)
[2017-05-23] MEDS ORDERED: ZOLPIDEM TARTRATE 5 MG TAB PO PRN (09:00)
[2017-05-23] MEDS ORDERED: ONDANSETRON INJ 2 MG/ML 2 ML VIAL IV PRN (09:00)
[2017-05-23] MEDS ORDERED: MoRPHine SULFATE 2 MG/ML CARP IV PRN (09:00)
[2017-05-23] MEDS ORDERED: MAGNESIUM HYDROXIDE SUSP 30 ML UDC PO PRN (09:00)
[2017-05-23] MEDS ORDERED: METOCLOPRAMIDE HCL INJ 5 MG/ML 2 ML VIAL IV PRN (09:00)
--- NOTE | 2017-05-23 09:11 | [facility] Operative Report ---
Operative Report Operative Date May 23, 2017. Pre-Operative Diagnosis Right knee primary osteoarthritis Post-Operative Diagnosis same Procedure(s) Performed Right Total Knee Arthroplasty Surgeon Dr. Bates Lead Ingot Molder Surgeon(s) Jareth Dela Cruz Pa-C Estimated Blood Loss 20 ML Findings As above Specimens a. right knee bone and tissue Drains 2 Hemovac Anesthesia spinal Complication(s) None Disposition Recovery Room / PACU Indications 57-year-old male with long-standing degenerative joint disease of the right knee. He is [id number] in the medial compartment. He has failed conservative measures including cortisone injection, NSAIDs, rehabilitation. He wishes to proceed with a right total knee arthroplasty. Description of Procedure Risks benefits and alternatives of surgery including but not limited to infection, DVT, pain, stiffness, need for surgery, damage to blood vessels, damage to nerves or risks of anesthesia were discussed with the patient and they wished to proceed. The patient was identified and the laterality was confirmed and marked. They received a preoperative antibiotic as well as a spinal anesthetic and an abductor canal block. A well-padded tourniquet was applied and then the limb was prepped and draped in standard manner with ChloraPrep. [The limb was exsanguinated and the tourniquet was inflated.] I made a standard anterior incision. I sharply incised the skin then utilized Bovie electrocautery as well as the aqua mantis to achieve hemostasis. I made a medial parapatellar arthrotomy immobilized the patella laterally. I then excised the anterior horns of the medial and lateral meniscus as well as the infrapatellar fat pad. I elevated a portion of the MCL off of the tibia. I then pinned into place a patient-matched distal femoral cutting guide and made my distal femoral resection. I then pinned into place the 5 in 1 femoral cutting guide. I made my anterior, posterior and chamfer cuts. I then excised the cruciates and the remaining portions of the menisci. I then pinned into place a patient- matched tibial cutting guide and made my tibial resection. I then pinned into place the tibial plate a utilizing alignment mateo to confirm rotation. I then cut for the post. Utilizing a lamina facilities maintenance supervisor and I then removed posterior osteophytes off the femur. I then placed a trial femur into position and cut for the trochlear component. I then sequentially trialed to size the polyethylene until there was good soft tissue balancing and range of motion. I then prepared the patella with a freehand cut utilizing sagittal saw. I sized and drilled for the patella. [There was good tracking to the patella no lateral release was needed.] All the trial components were removed. The deep tissues were anesthetized with an ortho mix solution. Then with Simplex HV with gentamicin cement, I cemented my definitive components. Definitive components, Manjarrez [employer] Nephew Journey 2: Femur 6 Tibia 5 Poly 9 Patella 38 oval A betadine soak was performed. [A deep drain was placed.] The arthrotomy was closed with interrupted #1 Vicryl suture subcutaneous tissue was closed with interrupted 2-0 Vicryl suture. The skin was closed with with yadiel. A Silverlon was placed. Sterile dressings were applied. All needle and sponge counts were correct at the end of the procedure patient was transferred to the PACU in stable condition without apparent complication. The PA-C was necessary for assistance with procedure for assistance in positioning, prepping, draping, retraction and closure. I attest to the content of the Intraoperative Record and any orders documented therein. Any exceptions are noted below.
[2017-05-23] MEDS ORDERED: ATROPINE SULFATE 0.1 MG/ML 5ML SYR IV PRN (09:30)
[2017-05-23] MEDS ORDERED: EpHEDrine SULFATE INJ 50 MG/ML AMP IV PRN (09:30)
--- NOTE | 2017-05-23 09:50 | DIAGNOSTIC IMAGING REPORT ---
PORTABLE RIGHT KNEE 2 VIEWS CLINICAL HISTORY: Postop examination COMPARISON: None. DISCUSSION: There are postsurgical changes of a total right knee arthroplasty and patellar resurfacing. There are overlying skin yadiel and surgical drains. There is air within the soft tissues consistent with recent surgery. The femoral and tibial components appear well seated. A slight oblique orientation of the femoral with respect the tibial component, likely is projectional. IMPRESSION: Postsurgical changes of a total right knee arthroplasty. Electronically signed by: Aki Petersen M.D. 05/23/2017 9:48 AM Dictated Date/Time: 05/23/2017 9:47 AM
--- NOTE | 2017-05-23 10:28 | Anesthesiology Progress Note ---
Anesthesia Post Op Note Date & Time May 23, 2017 at 10:27 Vital Signs Pain Intensity: 0 Vital Signs Past 12 Hours Date Time Temp Pulse Resp B/P (MAP) Pulse Ox O2 Delivery O2 Flow Rate FiO2 05/23/17 10:10 68 14 119/90 100 Nasal Cannula 2 05/23/17 09:55 36.2 74 13 130/87 98 Nasal Cannula 2 05/23/17 09:45 70 15 128/88 100 Nasal Cannula 2 05/23/17 09:35 78 14 133/88 99 Nasal Cannula 2 05/23/17 09:25 36.0 84 12 114/92 100 Oxymask 10 05/23/17 05:34 36.9 81 18 137/102 96 Room Air Notes Mental Status: alert / awake / arousable, participated in evaluation Pt Amnestic to Procedure: Yes Nausea / Vomiting: adequately controlled Pain: adequately controlled Airway Patency, RR, SpO2: stable & adequate BP & HR: stable & adequate Hydration State: stable & adequate Anesthetic Complications: no major complications apparent
[2017-05-23] MEDS ORDERED: KETOROLAC TROMETHAMINE 30 MG/ML VIAL IV. PRN (11:30)
[2017-05-23] MEDS: METOPROLOL SUCC 50MG EXT REL TAB PO SCH (12:25)
[2017-05-23] MEDS: FERROUS GLUCONATE 324 MG TAB PO SCH ×2 (12:26→17:59)
[2017-05-23] MEDS: PANTOprazole SOD 40 MG TAB PO SCH (12:26)
[2017-05-23] MEDS: D5W AND 1/2NSS + 20MEQ KCL 1,000 ML IV SCH ×2 (12:26→21:15)
[2017-05-23] MEDS: ACETAMINOPHEN 500 MG TAB PO SCH ×2 (14:23→21:27)
[2017-05-23] MEDS ORDERED: INFLUENZA ADMINISTRATION CHARGE ONE (15:30)
[2017-05-23] MEDS ORDERED: INFLUENZA VIRUS QUAD VACCINE 0.5 ML SYR IM. ONE (15:30)
--- NOTE | 2017-05-23 16:13 | Discharge Instructions ---
Discharge Instructions Date of Service May 23, 2017. Admission Reason for Admission: Right Knee Osteoarthritis Discharge Discharge Diagnosis / Problem: S/P Right TKA Discharge Goals Goal(s): Decrease discomfort, Improve function Activity Recommendations Activity Limitations: per Instructions/Follow-up section . Instructions / Follow-Up Instructions / Follow-Up ACTIVITY RECOMMENDATIONS: SELF CARE INSTRUCTIONS AFTER TOTAL KNEE REPLACEMENT A. You may need to continue a physical therapy program after discharge from the hospital. There are several options available to you. Your doctor will assist you in selecting the best one for you. 1. An out-patient facility 2 to 3 times a week for therapy or home therapy. 2. Continue working on all exercises taught to you in the hospital. Your goals should be to increase bending of your knee to 90 degrees and beyond and to fully straighten your knee. B. You may progress at your own pace from walking with a walker or crutches to a cane; then to no assistive devices. C. Make walking a part of your daily routine. Be up as much as comfortable with rest periods throughout the day. Rest with leg elevation is very important. Use the ice wrap frequently for the first 3-4 weeks. D. There are no restrictions on activities. You may ride in a car, shop, participate in dealer development manager and all social activities. E. Wear the long elastic stockings (DAKOTAH hose) 20 hours a day for 2 weeks after surgery. They can be removed several times a day for laundering and for a bath. F. You may shower, no tub baths until cleared by your doctor. SPECIAL CARE INSTRUCTIONS: VERY IMPORTANT TO READ AND REVIEW A. There are a few signs you need to watch for after you are home. Call [facility] if you notice any of the followin. Increased severe knee pain. Some pain is expected especially when you exercise. 2. Increased swelling in your leg or knee; pain or swelling of the calf muscle in either lower leg. 3. Any fluid drainage from the incision. 4. Shortness of breath or chest pain. B. Please call [facility] at if you have any concerns or questions about your operation or recovery. The doctor or his nurse will return your call promptly. C. You must take antibiotics before dental work, bladder, bowel or other surgery. Your doctor will provide you with a permanent care to carry describing this precaution. IMPORTANT: * REMEMBER TO TAKE ASPIRIN, 81 MG, TWICE DAILY FOR 4 WEEKS UNLESS OTHERWISE DIRECTED. THIS IS YOUR BLOOD THINNER. * CALL IF INCREASED PAIN, REDNESS, DRAINAGE OR FEVER GREATER THAT 101. * WEAR DAKOTAH HOSE 20 HOURS PER DAY FOR 2 WEEKS. * YOU MAY HAVE A LARGE BAND-AID LIKE DRESSING (SILVERON). THIS WILL REMAIN ON YOUR INCISION FOR 7 DAYS, THEN CAN BE REMOVED. IF INCISION IS LEAKING THROUGH DRESSING, CALL THE OFFICE . FOLLOW UP VISIT: If appointment is not already scheduled: Please call [facility] to make a follow-up appointment for 2 weeks after your surgery at . Current Hospital Diet Patient's current hospital diet: Regular Diet Discharge Diet Recommended Diet: Regular Diet Procedures Procedures Performed: Right Total Knee Arthroplasty Pending Studies Studies pending at discharge: no Laboratory Results Hemoglobin A1c Test 04/23/17 11:26 Range/Units Estimated Average Glucose 126 mg/dl Hemoglobin A1c 6.0 H 4.5-5.6 % Medical Emergencies . Who to Call and When: Medical Emergencies: If at any time you feel your situation is an emergency, please call 911 immediately. . Non-Emergent Contact Non-Emergency issues call your: Surgeon Call Non-Emergent contact if: temperature is above 101.5, your pain is worsening, wound has increased drainage, wound has increased redness . "Provider Documentation" section prepared by Jareth Dela Cruz. . VTE Core Measure Inpt VTE Proph given/why not?: Other Anticoagulation (ASA) [place] Drug Monitoring Program Search Results: patient reviewed within database, no issues identified
[2017-05-23] MEDS: CEFAZOLIN IV 2,000 MG in DEXTROSE 5% 50ML 50 ML IV SCH ×2 (16:22→23:42)
[2017-05-23] MEDS: OXYCODONE HCL IR 5 MG TAB (IMMEDIATE RELEASE) PO PRN (18:00)
[2017-05-23] MEDS: ASPIRIN 81 MG ECTAB PO SCH (20:27)
[2017-05-23] MEDS ORDERED: NORTRIPTYLINE HCL 10 MG CAP PO SCH (21:00)
[2017-05-24 03:44] VITALS: BP 115/75; PULSE 96; TEMP 36.9; O2SAT 97
[2017-05-24] MEDS: ACETAMINOPHEN 500 MG TAB PO SCH (05:38)
[2017-05-24 06:21] LABS: HEMATOCRIT 37.2 % (42-52); MEAN CELL VOLUME 90.5 fL (80-100); MEAN CORPUSCULAR HEMOGLOBIN 30.9 pg (25-34); MEAN CORPUSCULAR HGB CONC 34.1 g/dl (32-36); MEAN PLATELET VOLUME 10.4 fL (7.4-10.4); PLATELET COUNT 257 K/uL (130-400); RED BLOOD COUNT 4.11 M/uL (4.7-6.1)
[2017-05-24 06:47] LABS: BUN/CREATININE RATIO 19.9 (10-20); CALCIUM 8.8 mg/dl (8.5-10.1); CREATININE 0.96 mg/dl (0.60-1.40); POTASSIUM 4.5 mmol/L (3.5-5.1)
[2017-05-24 07:21] VITALS: BP 145/87; PULSE 92; TEMP 36.9; O2SAT 96
[2017-05-24] MEDS ORDERED: DEXAMETHASONE 4 MG TAB PO SCH (07:30)
[2017-05-24] MEDS: PANTOprazole SOD 40 MG TAB PO SCH (07:34)
[2017-05-24] MEDS: ASPIRIN 81 MG ECTAB PO SCH (07:34)
[2017-05-24] MEDS: FERROUS GLUCONATE 324 MG TAB PO SCH (07:34)
[2017-05-24] MEDS: METOPROLOL SUCC 50MG EXT REL TAB PO SCH (07:35)
--- NOTE | 2017-05-24 07:45 | Orthopedic Progress Note ---
Orthopedic Progress Note Date of Service May 24, 2017. Subjective Post OP Day: 1 Reports: feeling well (Pt ready to go home) Objective N/V intact, dressing C/D/I (Hemovac in place), toes mobile Date Time Temp Pulse Resp B/P (MAP) Pulse Ox O2 Delivery O2 Flow Rate FiO2 05/24/17 07:21 36.9 92 16 145/87 (106) 96 Room Air 05/24/17 03:44 36.9 96 16 115/75 (88) 97 Room Air 05/23/17 23:45 Room Air 05/23/17 22:55 36.6 98 16 130/73 (92) 97 Room Air 05/23/17 19:50 37.0 91 18 149/81 (103) 98 Room Air 05/23/17 15:25 Nasal Cannula 2.0 05/23/17 15:05 36.7 86 18 128/81 (97) 100 Nasal Cannula 2.0 05/23/17 13:15 36.6 72 16 132/84 (100) 99 2.0 05/23/17 12:15 36.6 72 14 117/79 (92) 99 Nasal Cannula 2.0 05/23/17 11:15 76 16 145/97 (113) 99 Nasal Cannula 2.0 05/23/17 10:45 75 16 141/90 (107) 99 Nasal Cannula 2.0 05/23/17 10:15 99 Nasal Cannula 2.0 05/23/17 10:15 99 Nasal Cannula 2.0 05/23/17 10:10 68 14 119/90 100 Nasal Cannula 2 05/23/17 09:55 36.2 74 13 130/87 98 Nasal Cannula 2 05/23/17 09:45 70 15 128/88 100 Nasal Cannula 2 05/23/17 09:35 78 14 133/88 99 Nasal Cannula 2 05/23/17 09:25 36.0 84 12 114/92 100 Oxymask 10 Laboratory Results 24 Hours: Test 05/24/17 05:18 Hematocrit 37.2 % Hemoglobin 12.7 g/dL Assessment & Plan Assessment: 57 yo male stable POD #1 s/p right TKA Plan: 1. Med management 2. DVT prophylaxis- ASA, SCDs 3. PT/OT 4. D/C planning- home w/ HH
[2017-05-24] MEDS ORDERED: CLB200 PO (07:47)
[2017-05-24] MEDS ORDERED: ONDA8TAB12 PO (07:47)
[2017-05-24] MEDS ORDERED: RXC5 PO (07:47)
[2017-05-24] MEDS ORDERED: ASPEC81 PO (07:47)
[2017-05-24] MEDS ORDERED: ACET-24 PO (07:47)
[2017-05-24] MEDS: OXYCODONE HCL IR 5 MG TAB (IMMEDIATE RELEASE) PO PRN (08:39)
[2017-05-24 08:40] VITALS: BP 145/87; PULSE 92; TEMP 36.9; O2SAT 96
[2017-05-24] MEDS ORDERED: MULTIVITAMIN TAB PO SCH (09:00)
[2017-05-24] MEDS ORDERED: CeleBREX 200 MG CAP PO SCH (21:00)
--- NOTE | 2017-05-28 11:01 | Discharge Summary ---
Orthopedic Discharge Summary Admission Date/Reason May 23, 2017 at 06:40 Right Knee Osteoarthritis. Discharge Date/Disposition May 24, 2017 Home with services Diagnosis Principal Diagnosis: S/P Right TKA Medication Reconciliation as per discharge instructions Admission Physical Exam As per Admitting History & Physical. Hospital Course POD #1 patient was feeling well. Dressing was clean, dry and intact. He had no complaints. He was scheduled go to home that day with home health services. Discharge Instructions Please refer to the electronic Patient Visit Report (Discharge Instructions) for additional information.
== END 2017-05-24 12:00 | disposition home health service (06) | DRG 470 ==
LOC: C.ACU 04:46 → C.3E 06:40 → ENRESERV 10:00
PROVIDERS: ADMIT Orthopaedic Surgery; ATTEND Orthopaedic Surgery
PROC: 0SRC0J9 Replacement of Right Knee Joint with Synthetic Substitute, Cemented, Open Approach (ICD-10-PCS; principal; 2017-05-23 07:00)
DX: M17.11 Unilateral primary osteoarthritis, right knee (principal); I10 Essential (primary) hypertension; K21.9 Gastro-esophageal reflux disease without esophagitis; J44.9 Chronic obstructive pulmonary disease, unspecified; K44.9 Diaphragmatic hernia without obstruction or gangrene; D57.1 Sickle-cell disease without crisis; K31.89 Other diseases of stomach and duodenum; R11.10 Vomiting, unspecified; Z96.652 Presence of left artificial knee joint; K75.81 Nonalcoholic steatohepatitis (NASH); E66.9 Obesity, unspecified; Z79.899 Other long term (current) drug therapy; Z23 Encounter for immunization; Z68.34 Body mass index [BMI] 34.0-34.9, adult; Z99.89 Dependence on other enabling machines and devices; Z87.891 Personal history of nicotine dependence; Z79.82 Long term (current) use of aspirin

== ENCOUNTER → 2017-12-30 | Outpatient (CLI) | payer BC, OTHER ==
[~2017-12-30] MED LIST changes: +ACET-24 PO; +ASPI-320 PO; -ASPI81TA28 PO; -CLB/200 PO; +CLB200 PO; +METO100T44 PO; -METO1TAB69 PO; -NAPR1TAB9 PO; -PRLSR20 PO; +RXC5 PO
[2017-12-30 18:18] LABS: BASO % 0.6 %; BASO ABS # 0.04 K/uL (0-0.2); EOS % 2.2 %; EOS ABS # 0.14 K/uL (0-0.5); HEMATOCRIT 43.4 % (42-52); HEMOGLOBIN 15.5 g/dL (14.0-18.0); IG# 0.02 K/uL (0.00-0.02); LYMPH % 40.7 %; LYMPH ABS # 2.55 K/uL (1.2-3.4); MEAN CELL VOLUME 87.3 fL (80-100); MEAN CORPUSCULAR HEMOGLOBIN 31.2 pg (25-34); MEAN CORPUSCULAR HGB CONC 35.7 g/dl (32-36); MEAN PLATELET VOLUME 10.8 fL (7.4-10.4); MONO % 8.1 %; MONO ABS # 0.51 K/uL (0.11-0.59); NEUT % 48.1 %; NEUT ABS # 3.01 K/uL (1.4-6.5); PLATELET COUNT 273 K/uL (130-400); RED CELL DISTRIBUTION WIDTH CV 13.9 % (11.5-14.5); RED CELL DISTRIBUTION WIDTH SD 44.5 fL (36.4-46.3); WHITE BLOOD COUNT 6.27 K/uL (4.8-10.8)
[2017-12-30 18:30] LABS: ALBUMIN 4.7 gm/dl (3.4-5.0); ALT/SGPT 53 U/L (12-78); AST/SGOT 33 U/L (15-37); BLOOD UREA NITROGEN 24 mg/dl (7-18); CALCIUM 9.7 mg/dl (8.5-10.1); CARBON DIOXIDE 26 mmol/L (21-32); GLUCOSE 93 mg/dl (70-99); POTASSIUM 4.1 mmol/L (3.5-5.1); SODIUM 140 mmol/L (136-145)
[2017-12-30 18:41] LABS: ALKALINE PHOSPHATASE 78 U/L (45-117); CHOLESTEROL 208 mg/dl (0-200); LDL CHOLESTEROL CALCULATED 129 mg/dl; TOTAL PROTEIN 8.4 gm/dl (6.4-8.2)
[2017-12-31 06:12] LABS: HEMOGLOBIN A1C 5.9 % (4.5-5.6)
== END | disposition home or self-care (01) ==
LOC: C.LABMFLN 16:29
PROVIDERS: ATTEND Physician Assistant
DX: I10 Essential (primary) hypertension (principal); K21.9 Gastro-esophageal reflux disease without esophagitis; Z86.39 Personal history of other endocrine, nutritional and metabolic disease; R73.01 Impaired fasting glucose